=== PATIENT | female | born 1955 | race Caucasian/White ===

== ENCOUNTER 2019-04-28 14:52 | Outpatient (CLI) | payer BC, OTHER ==
--- NOTE | 2019-04-28 17:47 | CT ---
ABDOMEN CT WITH CONTRAST PELVIC CT WITH CONTRAST 04/28/19 HISTORY: Cancer. Previous surgery. COMPARISON: 07/18/15 FINDINGS: ABDOMEN CT: Scar and atelectasis in the left lung base. Heart size is normal. No significant pericardial fluid. T he visualized aorta has a normal caliber. There is atherosclerosis. No periaortic fat stranding. Castro nt portal vein. Unremarkable gallbladder. Liver, spleen, pancreas, and adrenal glands have appropriat e attenuation and enhancement. Decreased evaluation due to diminished visceral fat. No definite mesenteric mass, lymphadenopathy, fr ee air or free fluid. No gastrohepatic, retrocrural or periportal lymphadenopathy. Symmetric enhancem ent of the kidneys. Bilaterally, no obstructive uropathy. There is mucosa thickening involving the visualized distal thoracic esophagus, similar to the previou s examination. Gastric mucosa, duodenum and multiple normal caliber small bowel loops are identified. Ileocecal junction is normal. Normal caliber contrast filled appendix. Scattered fecal material in a nondistended, nondilated colon. Anastomosis at the region of the sigmoid junction. CT PELVIS: Limited evaluation due to beam attenuation artifact from a right hip arthroplasty. No definite pelvic mass, lymphadenopathy, free air or free fluid. Grossly unremarkable urinary bladder. There are no lytic or blastic lesions within the osseous structures. Hysterectomy changes are noted. IMPRESSION: 1. Persistent mucosa thickening of the visualized distal thoracic esophagus. 2. No evidence of a bowel obstruction. POS: [facility]
== END 2019-04-28 14:53 | disposition home or self-care (01) ==
LOC: BICCT 14:52
PROVIDERS: ATTEND Internal Medicine Gastroenterology
DX: R10.9 Unspecified abdominal pain (principal); K22.8 Other specified diseases of esophagus; Z85.038 Personal history of other malignant neoplasm of large intestine
CPT/HCPCS: 74177

== ENCOUNTER 2021-09-13 10:55 | Outpatient (CLI) | payer MEDICARE | END 2021-09-13 10:56 | disposition home or self-care (01) | LOC: BICMAMMO 10:55 → MERGE 10:55 → BICMAMMO 10:56 | PROVIDERS: ATTEND Internal Medicine | DX: Z12.31 Encounter for screening mammogram for malignant neoplasm of breast (principal) | CPT/HCPCS: 77063; 77067 ==

== ENCOUNTER 2022-02-26 10:01 | Outpatient (CLI) | payer MEDICARE | END 2022-02-26 10:02 | disposition home or self-care (01) | LOC: BICCT 10:01 | PROVIDERS: ATTEND Internal Medicine Gastroenterology | DX: R10.9 Unspecified abdominal pain (principal); R11.2 Nausea with vomiting, unspecified; K59.00 Constipation, unspecified; R63.4 Abnormal weight loss; Z85.038 Personal history of other malignant neoplasm of large intestine; K22.89 Other specified disease of esophagus | CPT/HCPCS: 74177; 82565 ==

== ENCOUNTER 2022-04-18 09:47 | Outpatient (CLI) | payer MEDICARE | END 2022-04-18 09:48 | disposition home or self-care (01) | LOC: ULT 09:47 | PROVIDERS: ATTEND Internal Medicine Gastroenterology | DX: R10.11 Right upper quadrant pain (principal); K59.00 Constipation, unspecified; R11.2 Nausea with vomiting, unspecified; K76.0 Fatty (change of) liver, not elsewhere classified; K82.8 Other specified diseases of gallbladder | CPT/HCPCS: 76705 ==

== ENCOUNTER 2022-06-14 14:06 | Outpatient (CLI) | payer MEDICARE ==
[~2022-06-14 14:06] MED LIST: Gadobenate Dimeglumine 529 MG/1 ML (20ML VIAL) ONE
== END 2022-06-14 14:07 | disposition home or self-care (01) ==
LOC: MRI 14:06
PROVIDERS: ATTEND Psychiatry & Neurology Neurology
DX: S06.0X0A Concussion without loss of consciousness, initial encounter (principal); M47.812 Spondylosis without myelopathy or radiculopathy, cervical region; Z98.1 Arthrodesis status; Q26.8 Other congenital malformations of great veins
CPT/HCPCS: 70553; 72040; 95816; 95957; A9577

== ENCOUNTER 2023-04-05 15:54 | Outpatient (CLI) | payer MEDICARE | END 2023-04-05 15:55 | disposition home or self-care (01) | LOC: RAD 15:54 | PROVIDERS: ATTEND Student in an Organized Health Care Education/Training Program | DX: R06.02 Shortness of breath (principal) | CPT/HCPCS: 71046 ==

== ENCOUNTER 2023-07-02 06:50 | Emergency (ER) | payer MEDICARE ==
[2023-07-02] MEDS ORDERED: Ibuprofen 200 MG TAB ONE (07:25)
[2023-07-02] MEDS ORDERED: Acetaminophen 500 MG TAB ONE (07:25)
== END 2023-07-02 07:43 | disposition home or self-care (01) ==
LOC: ERS 06:50
DX: S00.83XA Contusion of other part of head, initial encounter (principal); E78.00 Pure hypercholesterolemia, unspecified; W01.0XXA Fall on same level from slipping, tripping and stumbling without subsequent striking against object, initial encounter; Z87.891 Personal history of nicotine dependence
CPT/HCPCS: 99283